=== PATIENT | female | born 1995 | race African-American/Black ===

== ENCOUNTER 2024-08-23 12:04 | Emergency (ER) | payer OTHER ==
[~2024-08-23] VITALS: Ht 154.9 cm; Wt 48.1 kg
[2024-08-23 12:11] VITALS: PULSE 70; RESP 16; TEMP 99.1
[2024-08-23] MEDS ORDERED: DEXAMETHASONE SOD PHOS INJ 4 MG/ML SDV ONE (12:32)
[2024-08-23] MEDS ORDERED: BENZONATATE200 MG PO (12:40)
[2024-08-23] MEDS ORDERED: VENTOLIN HFA18 GM INH (12:40)
[2024-08-23] MEDS ORDERED: AZITHROMYCIN250 MG PO (12:40)
[2024-08-23] MEDS: DEXAMETHASONE SOD PHOS INJ 4 MG/ML SDV IM ONE (12:43)
[2024-08-23 13:31] VITALS: BP 129/75; PULSE 73; RESP 17; TEMP 98.3; O2SAT 100
== END 2024-08-23 12:56 | disposition home or self-care (01) ==
LOC: FSED 12:10
DX: R50.9 Fever, unspecified (principal); J02.9 Acute pharyngitis, unspecified; R05.1 Acute cough
CPT/HCPCS: 99283; J1100